=== PATIENT | female | born 1945 | race Two or more races ===

== ENCOUNTER 2025-05-10 16:16 | Inpatient (IN) | payer OTHER ==
[~2025-05-10] VITALS: Ht 152.4 cm; Wt 58.5 kg
[2025-05-10] MEDS ORDERED: HUMALOG100 UNIT/2 (17:07)
[2025-05-10] MEDS ORDERED: XIGDUO XR 2.51 EACH (17:07)
[2025-05-10] MEDS ORDERED: NASAL MIST126 ML (17:08)
[2025-05-10] MEDS ORDERED: PEPCID AC20 MG (17:08)
--- NOTE | 2025-05-10 17:10 | NUR ---
PACIENTE ALERTA Y ORIENTADA X3 LA MISMA REFIERE DEVILIDAD GENERAL Y PLAQUETAS BAJAS PACIENTE DRERIN. S/V ESTABLES DENTRO DE PERALTA CONDICION . PACIENTE EN ANNE CON BARANDAS ELEVADAS EN ESPERA DE EVALUACION MEDICA.
[2025-05-10] MEDS ORDERED: 0.9 % SODIUM CHLORIDE 1,000 ML IV STA (17:25)
--- NOTE | 2025-05-10 18:03 | NUR ---
SE EDUCA PTE SOBRE TX Y ESTA REFIERE ENTENDER Y ACEPTAR. SE PROCEDE A COLECTAR MUESTRAS DE LABORATORIO Y CANALIZAR BAJO MEDIDAS ASEPTICAS Y SE ADMINISTRAN MEDICAMENTOS SACHI ORDEN MEDICA. SE ENTREGA ENVASE PARA U/A.
[2025-05-10 18:07] LABS: BASO % 0.5 % (0.1-1.2); EOS # 0.01 (0.04-0.54); EOS % 0.3 % (0.7-7.0); LYMPH # 0.77 (1.18-3.74); LYMPH % 20.8 % (19.3-53.1); MONO # 0.35 (0.24-0.82); MONO % 9.4 % (4.7-12.5); NEUT # 2.37 (1.56-6.13); NEUT % 63.9 % (34.0-71.1); RED CELL DISTRIBUTION WIDTH 19.1 % (11.6-14.4)
[2025-05-10 18:20] LABS: COVID-19 AG NEGATIVE (NEGATIVE)
[2025-05-10 18:26] LABS: INR 1.11
[2025-05-10 18:40] LABS: BAND MAN 6.0 %; BASOPHIL MAN 2.0 %; LYMPHOCYTE MAN 6.0 %; MONOCYTE MAN 7.0 %; MYELOCYTE 6.0 %; NEUTROPHILS MAN 64.0 %
[2025-05-10 19:08] LABS: ALT/SGPT 24.0 U/L (12-78); AST/SGOT 58.0 U/L (15-37); BILIRUBIN TOTAL 0.7 mg/dL (0.3-1.2); BUN CREA RATIO 33.0 (7.0-25.0); CREATININE SERUM 0.64 mg/dL (0.55-1.02); GFR 89.74; GLOBULINA 2.7 G/DL (2.4-3.5); GLUCOSE FASTING 174.0 mg/dL (65-100); OSMOLALITY SERUM 272.0 MOSM/KG (275-295)
[2025-05-10 20:59] LABS: URINE APPEARANCE Clear; URINE BILIRRUBIN Negative (NEGATIVE); URINE BLOOD Negative; URINE COLOR Yellow; URINE KETONE Trace (NEGATIVE); URINE LEUKOCYTE Negative; URINE NITRATE Negative; URINE PROTEIN Trace (NEGATIVE); URINE UROBILINOGEN 1.0 E.U./dl
[2025-05-10 21:05] LABS: URINE BACTERIA 2386.8 uL (0.0-1933); URINE EPITHELIAL CELLS 51.0 uL (0.0-38.8); URINE RBC 2.6 uL (0.0-20.8); URINE WBC 7.6 uL (0.0-23.2)
[2025-05-10 21:10] LABS: URINE CAST 1.17 uL (0.0-1.40); URINE GLUCOSE >=1000 MG/DL (NEGATIVE)
[2025-05-10] MEDS ORDERED: METHYLPREDNISOLONE SOD SUCC 125 MG VIAL IV ONE (22:00)
[2025-05-10] MEDS ORDERED: LEVALBUTEROL HCL 1.25 MG/3 ML SOLUTION IH SCH (22:00)
[2025-05-10] MEDS ORDERED: IPRATROPIUM BROMIDE 0.5 MG/2.5 ML AMPUL.NEB IH SCH ×2 (22:00→22:01)
[2025-05-10] MEDS ORDERED: IPRATROPIUM BROMIDE 0.5 MG/2.5 ML AMPUL.NEB IH ONE (22:08)
[2025-05-10] MEDS ORDERED: LEVALBUTEROL HCL 0.63 MG/3 ML SOLUTION IH ONE (22:08)
[2025-05-10] MEDS ORDERED: ACETAMINOPHEN 500 MG GEL..CAP PO PRN (22:15)
[2025-05-10] MEDS ORDERED: NITROGLYCERIN IN 5 % DEXTROSE 250 ML IV SCH (22:15)
[2025-05-10] MEDS ORDERED: ONDANSETRON HCL 4 MG in 0.9 % SODIUM CHLORIDE 50 ML IV PRN (22:15)
[2025-05-10] MEDS ORDERED: INSULIN LISPRO 1,000 UNIT/10 ML UNITS SUBCUTANEO PRN (22:15)
[2025-05-10] MEDS ORDERED: DEXTROSE 50 % IN WATER 0.5 G/ML DISP.SYRIN IV PRN (22:15)
[2025-05-11] VITALS (12 sets, daily range): BP systolic 83–166; BP diastolic 45–69; O2SAT 97–100
[2025-05-11] MEDS ORDERED: NITROGLYCERIN IN 5 % DEXTROSE 50 MG/250 ML BOTTLE IV ONE (01:46)
[2025-05-11] MEDS ORDERED: METHYLPREDNISOLONE SOD SUCC 125 MG VIAL ONE (01:46)
[2025-05-11 02:46] LABS: INR 1.14
[2025-05-11] MEDS ORDERED: NITROGLYCERIN IN 5 % DEXTROSE 250 ML IV SCH (06:45)
[2025-05-11] MEDS ORDERED: FAMOTIDINE/PF 20 MG in 0.9 % SODIUM CHLORIDE 8 ML IV PUSH SCH ×2 (09:00→21:00)
[2025-05-11] MEDS ORDERED: 0.9 % SODIUM CHLORIDE 1,000 ML IV SCH (12:00)
[2025-05-11] MEDS ORDERED: IPRATROPIUM/ALBUTEROL SULFATE 3 ML AMPUL.NEB IH SCH (13:00)
[2025-05-12] VITALS (19 sets, daily range): BP systolic 90–148; BP diastolic 50–67; O2SAT 90–100
[2025-05-12 07:48] LABS: BASO % 0.6 % (0.1-1.2); EOS # 0.00 (0.04-0.54); EOS % 0.0 % (0.7-7.0); LYMPH # 0.45 (1.18-3.74); LYMPH % 14.6 % (19.3-53.1); MEAN PLATELET VOLUME 11.00 fl (9.4-12.4); MONO # 0.30 (0.24-0.82); MONO % 9.7 % (4.7-12.5); NEUT # 2.14 (1.56-6.13); NEUT % 69.3 % (34.0-71.1); RED CELL DISTRIBUTION WIDTH 19.2 % (11.6-14.4)
[2025-05-12 11:53] LABS: BAND MAN 6.0 %; LYMPHOCYTE MAN 18.0 %; METAMYELOCYTE 1.0 %; MONOCYTE MAN 6.0 %; MYELOCYTE 1.0 %; NEUTROPHILS MAN 68.0 %
[2025-05-12] MEDS ORDERED: SOD FERRIC GLUC COMPLX/SUCROSE 62.5 MG in 0.9 % SODIUM CHLORIDE 50 ML IV SCH (12:24)
[2025-05-12] MEDS ORDERED: Cyanocobalamin/Mecobalamin 1 TAB.SL SL SCH (12:24)
[2025-05-12 14:13] LABS: GLUCOSE FASTING 177 mg/dL (65-100); OSMOLALITY SERUM 288 MOSM/KG (275-295)
[2025-05-12] MEDS ORDERED: PANTOPRAZOLE SODIUM 40 MG/VIAL VIAL IV PUSH SCH (17:00)
[2025-05-12] MEDS ORDERED: AMIODARONE HCL 50 MG/ML AMPUL IV STA (18:18)
[2025-05-12] MEDS ORDERED: AMIODARONE HCL 450MG/9ML VIAL IV SCH (18:30)
[2025-05-12] MEDS ORDERED: AMIODARONE HCL 900 MG in DEXTROSE 5 % IN WATER 500 ML IV SCH (19:15)
[2025-05-13] VITALS (9 sets, daily range): BP systolic 112–130; BP diastolic 54–74; O2SAT 90–97
[2025-05-14] VITALS (10 sets, daily range): BP systolic 108–114; BP diastolic 70–73; O2SAT 87–95
[2025-05-14] MEDS ORDERED: METHYLPREDNISOLONE SOD SUCC 40 MG VIAL IV STA (09:53)
[2025-05-14] MEDS ORDERED: MORPHINE SULFATE 2 MG/ML CARTRIDGE IV PRN (20:00)
[2025-05-14] MEDS ORDERED: AMIODARONE HCL 200 MG TABLET PO SCH (21:00)
[2025-05-15] VITALS (8 sets, daily range): BP systolic 100–125; BP diastolic 60–79; O2SAT 92–99
[2025-05-15 15:26] LABS: BASO % 0.9 % (0.1-1.2); EOS # 0.00 (0.04-0.54); EOS % 0.0 % (0.7-7.0); LYMPH # 0.63 (1.18-3.74); LYMPH % 14.9 % (19.3-53.1); MONO # 0.19 (0.24-0.82); MONO % 4.5 % (4.7-12.5); NEUT # 2.92 (1.56-6.13); NEUT % 68.9 % (34.0-71.1); RED CELL DISTRIBUTION WIDTH 21.0 % (11.6-14.4)
[2025-05-15] MEDS ORDERED: CIPROFLOXACIN IN 5 % DEXTROSE 400 MG/200 ML PIGGYBAG IV STA (15:48)
[2025-05-15 16:09] LABS: ALT/SGPT 24.0 U/L (12-78); AST/SGOT 84.0 U/L (15-37); BILIRUBIN TOTAL 1.01 mg/dL (0.3-1.2); BUN CREA RATIO 39.0 (7.0-25.0); CREATININE SERUM 0.87 mg/dL (0.55-1.02); GFR 62.97; GLOBULINA 2.0 G/DL (2.4-3.5); LDH 482.0 U/L (84-246)
[2025-05-15 16:16] LABS: OSMOLALITY SERUM 286.0 MOSM/KG (275-295)
[2025-05-15 16:21] LABS: BAND MAN 9.0 %; LYMPHOCYTE MAN 5.0 %; METAMYELOCYTE 2.0 %; MONOCYTE MAN 5.0 %; MYELOCYTE 3.0 %; NEUTROPHILS MAN 69.0 %
[2025-05-15 18:49] LABS: GLUCOSE FASTING 244.0 mg/dL (65-100)
[2025-05-15] MEDS ORDERED: MAGNESIUM SULFATE 1,000 MG in 0.9 % SODIUM CHLORIDE 50 ML IV ONE (19:00)
[2025-05-15] MEDS ORDERED: POTASSIUM PHOS,M-BASIC-D-BASIC 3 MM/ML VIAL IV SCH (19:00)
[2025-05-16] VITALS (8 sets, daily range): BP systolic 102–109; BP diastolic 60–73; O2SAT 90–97
[2025-05-16] MEDS ORDERED: CIPROFLOXACIN IN 5 % DEXTROSE 400 MG/200 ML PIGGYBAG IV SCH (05:00)
[2025-05-16 06:51] LABS: URINE APPEARANCE Cloudy; URINE BILIRRUBIN Small (NEGATIVE); URINE BLOOD Moderate; URINE COLOR Dark Yellow; URINE GLUCOSE Negative (NEGATIVE); URINE KETONE Negative (NEGATIVE); URINE LEUKOCYTE Small; URINE NITRATE Positive; URINE PROTEIN Trace (NEGATIVE); URINE UROBILINOGEN 2.0 E.U./dl
[2025-05-16 06:55] LABS: URINE BACTERIA 4205.9 uL (0.0-1933); URINE CAST 3.95 uL (0.0-1.40); URINE EPITHELIAL CELLS 23.5 uL (0.0-38.8); URINE RBC 13.4 uL (0.0-20.8); URINE WBC 85.0 uL (0.0-23.2)
[2025-05-16 07:16] LABS: URINE CRYSTALS MODERATE /HPF
[2025-05-16] MEDS ORDERED: POTASSIUM PHOS,M-BASIC-D-BASIC 3 MM/ML VIAL IV SCH (12:00)
[2025-05-17] VITALS (10 sets, daily range): BP systolic 96–116; BP diastolic 62–65; O2SAT 92–99
[2025-05-17 08:46] LABS: ALT/SGPT 21.0 U/L (12-78); AST/SGOT 87.0 U/L (15-37); BILIRUBIN TOTAL 0.99 mg/dL (0.3-1.2); BUN CREA RATIO 43.0 (7.0-25.0); CREATININE SERUM 0.93 mg/dL (0.55-1.02); GFR 58.31; GLOBULINA 1.8 G/DL (2.4-3.5); LDH 594.0 U/L (84-246)
[2025-05-17 08:58] LABS: GLUCOSE FASTING 223.0 mg/dL (65-100); OSMOLALITY SERUM 285.0 MOSM/KG (275-295)
[2025-05-17 10:11] LABS: CA 125 284.0 U/mL (0.0-38.1); CA 19-9 104.0 U/mL (0-35)
[2025-05-17] MEDS ORDERED: MAGNESIUM HYDROXIDE 30 ML BLIST.PACK PO NR (11:30)
[2025-05-17] MEDS ORDERED: LACTULOSE 20 G/30 ML BLIST.PACK PO NR (11:30)
[2025-05-17] MEDS ORDERED: MINERAL OIL 30 ML BLIST.PACK PO NR (11:30)
[2025-05-17] MEDS ORDERED: MELATONIN 5 MG TABLET PO SCH (21:00)
[2025-05-18] VITALS (8 sets, daily range): BP systolic 93–114; BP diastolic 54–67; O2SAT 90–96
[2025-05-18 06:50] LABS: BASO % 1.3 % (0.1-1.2); EOS # 0.00 (0.04-0.54); EOS % 0.0 % (0.7-7.0); LYMPH # 0.96 (1.18-3.74); LYMPH % 21.1 % (19.3-53.1); MONO # 0.38 (0.24-0.82); MONO % 8.3 % (4.7-12.5); NEUT # 2.61 (1.56-6.13); NEUT % 57.2 % (34.0-71.1); RED CELL DISTRIBUTION WIDTH 23.0 % (11.6-14.4)
[2025-05-18 07:36] LABS: BAND MAN 6.0 %; LYMPHOCYTE MAN 22.0 %; METAMYELOCYTE 1.0 %; MONOCYTE MAN 5.0 %; NEUTROPHILS MAN 58.0 %
[2025-05-18] MEDS ORDERED: ONDANSETRON HCL 2 MG/ML VIAL IV PRN (08:15)
[2025-05-18] MEDS ORDERED: CLONAZEPAM 0.5 MG TABLET PO SCH (09:00)
[2025-05-18 11:26] LABS: MANUAL PLATELET COUNT 45
[2025-05-18] MEDS ORDERED: AMINO ACIDS 1 EACH TABLET PO SCH (17:00)
[2025-05-18] MEDS ORDERED: VANCOMYCIN HCL 1,000 MG VIAL IV SCH (17:00)
[2025-05-18] MEDS ORDERED: IPRATROPIUM BROMIDE 0.5 MG/2.5 ML AMPUL.NEB IH SCH (17:00)
[2025-05-19] VITALS (9 sets, daily range): BP systolic 80–130; BP diastolic 51–64; O2SAT 90–99
[2025-05-19] MEDS ORDERED: NOREPINEPHRINE BITARTRATE 8 MG in DEXTROSE 5 % IN WATER 250 ML IV SCH (18:15)
[2025-05-19] MEDS ORDERED: MORPHINE SULFATE 4 MG/ML VIAL IV PRN (20:30)
[2025-05-20 02:43] VITALS: BP 127/79; O2SAT 92
[2025-05-20 05:48] VITALS: O2SAT 90
[2025-05-20 08:34] VITALS: BP 104/68; O2SAT 91
[2025-05-20 08:47] VITALS: BP 104/68; O2SAT 95
[2025-05-20 17:48] VITALS: O2SAT 88
[2025-05-20 22:00] VITALS: O2SAT 92
== END 2025-05-21 03:00 | disposition expired | DRG 187 ==
LOC: ER 16:17 → ICU-2 22:35 → MEDJ 05-12 17:08
PROVIDERS: General Practice; Internal Medicine Infectious Disease; ADMIT Internal Medicine; ATTEND Internal Medicine
PROC: BW24YZZ Computerized Tomography (CT Scan) of Chest and Abdomen using Other Contrast (ICD-10-PCS; principal; 2025-05-10)
PROC: B24BYZZ Ultrasonography of Heart with Aorta using Other Contrast (ICD-10-PCS; 2025-05-10)
PROC: 30243R1 Transfusion of Nonautologous Platelets into Central Vein, Percutaneous Approach (ICD-10-PCS; 2025-05-11)
PROC: BW21ZZZ Computerized Tomography (CT Scan) of Abdomen and Pelvis (ICD-10-PCS; 2025-05-14)
PROC: 02HV33Z Insertion of Infusion Device into Superior Vena Cava, Percutaneous Approach (ICD-10-PCS; 2025-05-14)
PROC: 4A12X4Z Monitoring of Cardiac Electrical Activity, External Approach (ICD-10-PCS; 2025-05-16)
DX: J90 Pleural effusion, not elsewhere classified (principal); C78.00 Secondary malignant neoplasm of unspecified lung; R18.8 Other ascites; I10 Essential (primary) hypertension; E11.9 Type 2 diabetes mellitus without complications; Z79.4 Long term (current) use of insulin; E03.9 Hypothyroidism, unspecified; R09.02 Hypoxemia; D69.6 Thrombocytopenia, unspecified; I50.9 Heart failure, unspecified; R59.1 Generalized enlarged lymph nodes; D75.9 Disease of blood and blood-forming organs, unspecified; D64.9 Anemia, unspecified; F03.90 Unspecified dementia, unspecified severity, without behavioral disturbance, psychotic disturbance, mood disturbance, and anxiety; R06.02 Shortness of breath; Z85.3 Personal history of malignant neoplasm of breast; Z85.72 Personal history of non-Hodgkin lymphomas; N62 Hypertrophy of breast